=== PATIENT | female | born 1960 | race Caucasian/White ===

== ENCOUNTER 2024-11-27 22:16 | Emergency (ER) | payer OTHER ==
[~2024-11-27] VITALS: Ht 162.6 cm; Wt 52.2 kg
[~2024-11-27 22:16] MED LIST: ALPR1TAB7 PO; LEVE500T9 PO; LEVE750T4 PO; MIRT45TA3 PO; NORT75CA PO
[2024-11-27 22:20] VITALS: O2SAT 99
== END 2024-11-28 00:20 | disposition left against medical advice (07) ==
LOC: ER 22:16
DX: R51.9 Headache, unspecified (principal); Z53.21 Procedure and treatment not carried out due to patient leaving prior to being seen by health care provider
CPT/HCPCS: A4606; A4663